=== PATIENT | male | born 1955 | race Caucasian/White ===

== ENCOUNTER 2021-03-11 18:54 | Emergency (ER) | payer MEDICARE, OTHER, SELFPAY ==
[2021-03-11 19:53] VITALS: BP 131/76; PULSE 97; RESP 18; TEMP 36.5; O2SAT 96; BMI 30.1
--- NOTE | 2021-03-11 20:16 | XRR_ITS ---
PROCEDURE INFORMATION: Exam: XR Ribs Exam date and time: 03/11/2021 8:16 PM Age: 65 years old Clinical indication: Injury or trauma; Fall; Rib area, bilateral; Blunt trauma; Injury date: 03/11/2021; Injury details: Posterior lower rib pain TECHNIQUE: Imaging protocol: XR of the ribs. Views: 3 views. Bilateral ribs. COMPARISON: No relevant prior studies available. FINDINGS: Bones/joints: Normal. Soft tissues: Scattered small metal BBs in the soft tissues. XR/XR ribs BI mn 4V w CXR1V [id number] IMPRESSION: No acute abnormalities identified. Radiation Dose CTDIVOL = (mGy): DLP = (mGy-cm)
--- NOTE | 2021-03-11 20:32 | CTR_ITS ---
PROCEDURE INFORMATION: Exam: CT Chest With Contrast; Diagnostic Exam date and time: 03/11/2021 8:32 PM Age: 65 years old Clinical indication: Injury or trauma; Fall; Abdominal wall; Blunt trauma (contusions or hematomas); Patient HX: Patient fell approximately 6 feet off of a ladder landing onto left side. C/O left chest/abd wall pain. Left sided lower back pain. ; Additional info: Fall 4-6 ft; Rib/chest/abdominal pain/ecchymosis TECHNIQUE: Imaging protocol: Diagnostic computed tomography of the chest with contrast. Radiation optimization: All CT scans at this facility use at least one of these dose optimization techniques: automated exposure control; mA and/or kV adjustment per patient size (includes targeted exams where dose is matched to clinical indication); or iterative reconstruction. Contrast material: VISI 320; Contrast volume: 95 ml; Contrast route: INTRAVENOUS (IV); COMPARISON: CR (CHEST, ) 03/11/2021 9:01 PM RADIATION DOSE METRICS: Total DLP (mGy-cm): 2028. FINDINGS: Lungs: Unremarkable. No consolidation. No masses. Pleural spaces: Unremarkable. No pneumothorax. No pleural effusion. Heart: Unremarkable. No cardiomegaly. No pericardial effusion. Aorta: Unremarkable. No aortic aneurysm. Lymph nodes: Unremarkable. No enlarged lymph nodes. Bones/joints: Displaced fracture posterior left rib 11. Thoracic spine has anatomic alignment. No acute thoracic spine compression fractures. Soft tissues: Unremarkable. A few scattered retained metallic BBs. IMPRESSION: 1. Acute left posterior rib 11 fracture. 2. Negative for intrathoracic injury. PROCEDURE INFORMATION: Exam: CT Abdomen And Pelvis With Contrast Exam date and time: 03/11/2021 8:32 PM Age: 65 years old Clinical indication: Injury or trauma; Fall; Abdominal wall; Blunt trauma (contusions or hematomas); Patient HX: Patient fell approximately 6 feet off of a ladder landing onto left side. C/O left chest/abd wall pain. Left sided lower back pain. ; Additional info: Fall 4-6 ft; Rib/chest/abdominal pain/ecchymosis TECHNIQUE: Imaging protocol: Computed tomography of the abdomen and pelvis with contrast. Radiation optimization: All CT scans at this facility use at least one of these dose optimization techniques: automated exposure control; mA and/or kV adjustment per patient size (includes targeted exams where dose is matched to clinical indication); or iterative reconstruction. Contrast material: VISI 320; Contrast volume: 95 ml; Contrast route: INTRAVENOUS (IV); COMPARISON: CR (CHEST, ) 03/11/2021 9:01 PM RADIATION DOSE METRICS: Total DLP (mGy-cm): FINDINGS: Liver: Normal. No mass. Gallbladder and bile ducts: Normal. No calcified stones. No ductal dilation. Pancreas: Normal. No ductal dilation. Spleen: Normal. No splenomegaly. Adrenal glands: Normal. No mass. Kidneys and ureters: Simple right renal posterior interpolar cortical cyst. No dedicated follow-up recommended. Negative for hydronephrosis. No renal injury. Stomach and bowel: Unremarkable. No obstruction. No mucosal thickening. Appendix: No evidence of appendicitis. Intraperitoneal space: Negative for hemoperitoneum. Negative for pneumoperitoneum. Retroperitoneal space: Mild fat stranding changes in the posterior left retroperitoneum. Vasculature: Unremarkable. No abdominal aortic aneurysm. Lymph nodes: Unremarkable. No enlarged lymph nodes. Urinary bladder: Unremarkable as visualized. Reproductive: Unremarkable as visualized. Bones/joints: Fractures of the left transverse processes at L1 through L4. Pelvic osseous structures intact. Hip joints align. Pubic symphysis align. Sacroiliac joints align. Lumbar vertebral bodies have anatomic alignment without compression fracture.The lumbar spine demonstrates moderate discogenic and apophyseal joint degenerative changes at multiple levels. Soft tissues: Hazy fat stranding changes in the subcutaneous fat of the left flank. Lumbar paraspinal muscles are relatively symmetric with no significant finding. Few scattered retained metallic BBs. CT/CT chest abd pel w con* IMPRESSION: 1. Left flank subcutaneous soft tissue contusion. 2. L1 through L4 displaced left-sided transverse process fractures. COMMENTS: Consistent with the [employer]'s Incidental Findings Committee white paper (J Am Hafsa Radiol 2018): Any incidental renal lesion less than 1 cm or classified as too small to characterize, or any incidental cystic renal lesion characterized as simple-appearing, is likely benign. No follow-up imaging is recommended for these lesions per consensus recommendations based on imaging criteria. Radiation Dose CTDIVOL = (mGy): DLP = 2028.~ (mGy-cm)
[2021-03-11 21:10] VITALS: BP 152/81; PULSE 85; RESP 18; O2SAT 96
[2021-03-11 22:30] VITALS: BP 148/79; PULSE 87; RESP 16; O2SAT 97
[2021-03-11] MEDS: morphine 4 mg/mL SDV 1 mL IVP (22:45)
[2021-03-11] MEDS: ondansetron 2 mg/ML SDV 2 mL 4 MG IVP (22:45)
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
[2021-03-11] MEDS: iodixanol 320 mg/mL 100mL Btl IV (22:52)
[2021-03-11 23:12] LABS: Basophils # 0.1 10^3/uL (0.0-0.1); Basophils % 0.5 %; Eosinophils # 0.1 10^3/uL (0.0-0.8); Eosinophils % 0.9 %; Hematocrit 42.7 % (42.0-52.0); Hemoglobin 14.2 g/dL (11.7-16.6); Lymphocytes # 2.7 10^3/uL (0.8-4.8); Lymphocytes % 20.9 %; Mean Corpuscular HGB Conc 33.3 g/dL (30.0-36.0); Mean Corpuscular Hemoglobin 32.3 pg (28.0-34.0); Mean Corpuscular Volume 97.3 fl (80-94); Mean Platelet Volume 11.6 fL (7.4-10.4); Monocytes # 1.7 10^3/uL (0.2-0.9); Monocytes % 13.2 %; Neutrophils # 8.19 10^3/uL (1.8-7.7); Nucleated Red Blood Cells % 0 %; Platelet Count 276 10^3/cmm (130-400); Red Blood Count 4.39 10^6/uL (4.1-5.3); Red Cell Distribution Width 12.4 % (12.1-15.1); White Blood Count 12.8 10^3/uL (4.0-10.0)
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
[2021-03-12 00:01] VITALS: BP 123/76; PULSE 75; RESP 16; O2SAT 96
[2021-03-12 00:37] LABS: Alanine Aminotransferase 35 U/L (0-41); Albumin Level 4.2 g/dL (3.5-5.2); Alkaline Phosphatase 53 IU/L (40-130); Anion Gap 19.7 (5-19); Aspartate Amino Transferase 43 U/L (0-40); Blood Urea Nitrogen 18 mg/dL (8-23); Calcium 9.4 mg/dL (8.5-10.5); Carbon Dioxide 25 mmol/L (22-29); Chloride 94 mmol/L (98-107); Globulin 3.1 g/dL (1.3-4.6); Glomerular Filtration Rate 55.1 mL/min (90-130); Glucose 301 mg/dL (65-115); Osmolality Calculated 291 mOsm/kg (285-295); Potassium 4.7 mmol/L (3.5-5.1); Sodium 134 mmol/L (136-145); Total Bilirubin 0.7 mg/dL (0.15-1.2); Total Protein 7.3 g/dL (6.6-8.7)
[2021-03-12] MEDS: HYDROcodone-acetaminophen 5-325 mg Tablet 2 TAB PO (00:45)
[2021-03-12 00:57] VITALS: BP 122/79; PULSE 80; RESP 16; O2SAT 97
--- NOTE | 2021-03-12 13:48 | DCPLANNER ---
manager long term care had message to schedule a follow up appointment for patient with ortho. manager long term care called the ortho clinic, spoke with July, gave clinic patients information. manager long term care was told that patients information would be printed and reviewed. Clinic will call patient with appointment information.
--- NOTE | 2021-04-04 12:42 | DCPLANNER ---
Patient had a follow up appointment scheduled for 03.14.[address] Royal at [facility] - patient did attend appointment.
== END 2021-03-12 00:58 | disposition home or self-care (01) ==
PROVIDERS: Emergency Provider Physician Assistant
DX: S22.32XA Fracture of one rib, left side, initial encounter for closed fracture (principal); S30.1XXA Contusion of abdominal wall, initial encounter; S32.018A Other fracture of first lumbar vertebra, initial encounter for closed fracture; S32.028A Other fracture of second lumbar vertebra, initial encounter for closed fracture; S32.038A Other fracture of third lumbar vertebra, initial encounter for closed fracture; S32.048A Other fracture of fourth lumbar vertebra, initial encounter for closed fracture; W01.0XXA Fall on same level from slipping, tripping and stumbling without subsequent striking against object, initial encounter
CPT/HCPCS: 36415; 70450; 71111; 71260; 72125; 74177; 80053; 85025; 96374; 96375; 99284; J2270; J2405; Q9967

== ENCOUNTER → 2021-03-14 09:45 | Outpatient (BNVA) | payer MEDICARE, OTHER, SELFPAY | PROVIDERS: Referring Provider Physician Assistant; Visit Provider Orthopaedic Surgery | DX: S30.1XXA Contusion of abdominal wall, initial encounter (principal); X58.XXXA Exposure to other specified factors, initial encounter; S32.038A Other fracture of third lumbar vertebra, initial encounter for closed fracture; M47.816 Spondylosis without myelopathy or radiculopathy, lumbar region | CPT/HCPCS: 72100 ==